=== PATIENT | female | born 1990 | race African-American/Black ===

== ENCOUNTER 2019-04-14 20:16 | Emergency (ER) | payer MEDICAID, OTHER ==
[~2019-04-14] VITALS: Ht 162.6 cm; Wt 62.1 kg
[2019-04-14 20:26] VITALS: BP 133/90
--- NOTE | 2019-04-14 20:33 | NUR ---
PT TAKEN TO BED 1
--- NOTE | 2019-04-14 20:38 | NUR ---
came in with c/o constipation for 3 weeks , bloated . pain level 9/10
--- NOTE | 2019-04-14 20:57 | NUR ---
SEEN AND EXAMINED BY PA WITH ORDERS AND CRRIED OUT.
[2019-04-14 21:51] LABS: BASOPHILS # (AUTO) 0.1 K/uL (0.00-0.22); BASOPHILS % (AUTO) 0.7 % (0.0-2.0); EOSINOPHILS # (AUTO) 0.1 K/uL (0-0.4); EOSINOPHILS % (AUTO) 0.8 % (0.0-4.0); HEMATOCRIT 31.6 % (36-48); LYMPHOCYTES % (AUTO) 18.6 % (20.5-51.1); MEAN CORPUSCULAR HEMOGLOBIN 22 pg (27-31); MEAN CORPUSCULAR HGB CONC 32 g/dL (33-37); MEAN CORPUSCULAR VOLUME 68.2 fL (80-94); MONOCYTES # (AUTO) 0.7 K/uL (0.8-1.0); MONOCYTES % (AUTO) 4.3 % (1.7-9.3); NEUTROPHILS % (AUTO) 75.6 % (42.2-75.2); PLATELET COUNT (AUTO) 332 K/uL (140-450); RED BLOOD CELL COUNT(AUTO) 4.63 MIL/uL (4.20-5.40); RED CELL DISTRIBUTION WIDTH 20.7 % (11.6-13.7); WHITE BLOOD COUNT (AUTO) 15.9 K/uL (4.8-10.8)
[2019-04-14 22:32] LABS: APPEARANCE,URINE SL CLOUDY (CLEAR); BILIRUBIN,URINE NEGATIVE (NEGATIVE); BLOOD, URINE NEGATIVE (NEGATIVE); COLOR,URINE YELLOW (YELLOW); LEUKOCYTE ESTERASE ,URINE NEGATIVE (NEGATIVE); NITRITE, URINE NEGATIVE (NEGATIVE); UGLUCOSE NEGATIVE (NEGATIVE)
--- NOTE | 2019-04-14 23:31 | NUR ---
Dr. Drivre examining patient
[2019-04-14 23:46] VITALS: BP 125/81
--- NOTE | 2019-04-14 23:47 | NUR ---
Patient discharged with v/s stable. Written and verbal after care instructions given and explained. Patient verbalized understanding. Ambulatory with steady gait. All questions addressed prior to discharge. Advised to follow up with PMD.
== END 2019-04-14 23:47 | disposition home or self-care (01) ==
LOC: MED 20:16
DX: O26.891 Other specified pregnancy related conditions, first trimester (principal); R14.0 Abdominal distension (gaseous); R10.9 Unspecified abdominal pain; Z3A.01 Less than 8 weeks gestation of pregnancy
CPT/HCPCS: 36415; 76802; 81003; 81025; 84702; 85025; 86900; 86901; 99284; Q0092

== ENCOUNTER 2021-07-04 14:31 | Emergency (ER) | payer OTHER ==
[~2021-07-04] VITALS: Ht 162.6 cm; Wt 71.9 kg
[2021-07-04 14:39] VITALS: BP 117/78
--- NOTE | 2021-07-04 14:51 | NUR ---
PT AMB TO BED 7.
--- NOTE | 2021-07-04 15:00 | NUR ---
30 Y/O FEMALE BIB SELF C/O VAGINAL BLEEDING, LOWER ABD PAIN, NAUSEA X 1 WEEK. LMP 05/13/21. 7 WEEKS. . PT STATES SHE IS FEELING MORE TIRED THAN USUAL AND HAS INTERMITTENT SOB. PT DENIES CHEST PAIN. PT DENIES FEVER OR CHILLS. VSS. TEMP 99.0, R 18, P, 87, O2 SAT 100%ROOM AIR, BP 117/78. PT IS ALERT AND ORIENTED X4. BED LOCKED IN LOWEST POSITION. BED RAIL X1. PMH: DENIES MEDS: DENIES
--- NOTE | 2021-07-04 15:02 | NUR ---
LAB AT PT BEDSIDE
[2021-07-04 15:16] LABS: BASOPHILS % (AUTO) 0.3 % (0.0-2.0); EOSINOPHILS % (AUTO) 0.3 % (0.0-4.0); HEMATOCRIT 39.2 % (36-48); HEMOGLOBIN 12.6 g/dL (12.0-16.0); LYMPHOCYTES # (AUTO) 2.6 K/uL (2.5-16.5); LYMPHOCYTES % (AUTO) 20.6 % (20.5-51.1); MEAN CORPUSCULAR HEMOGLOBIN 25 pg (27-31); MEAN CORPUSCULAR HGB CONC 32 g/dL (33-37); MEAN CORPUSCULAR VOLUME 77.9 fL (80-94); MONOCYTES # (AUTO) 0.7 K/uL (0.8-1.0); MONOCYTES % (AUTO) 5.8 % (1.7-9.3); NEUTROPHILS # (AUTO) 9.2 K/uL (1.8-7.7); PLATELET COUNT (AUTO) 351 K/uL (140-450); RED BLOOD CELL COUNT(AUTO) 5.03 MIL/uL (4.20-5.40); RED CELL DISTRIBUTION WIDTH 18.4 % (11.6-13.7); WHITE BLOOD COUNT (AUTO) 12.6 K/uL (4.8-10.8)
--- NOTE | 2021-07-04 15:17 | NUR ---
US AT PT BEDSIDE
--- NOTE | 2021-07-04 17:03 | NUR ---
URINE WALKED TO LAB
[2021-07-04 17:52] LABS: APPEARANCE,URINE CLEAR (CLEAR); BILIRUBIN,URINE NEGATIVE (NEGATIVE); BLOOD, URINE NEGATIVE (NEGATIVE); COLOR,URINE YELLOW (YELLOW); LEUKOCYTE ESTERASE ,URINE NEGATIVE (NEGATIVE); NITRITE, URINE NEGATIVE (NEGATIVE); PH,URINE 7.5 (5.0-9.0); UGLUCOSE NEGATIVE (NEGATIVE)
[2021-07-04 18:02] VITALS: BP 119/69
== END 2021-07-04 18:02 | disposition home or self-care (01) ==
LOC: MED 14:31
DX: O20.0 Threatened abortion (principal); Z3A.01 Less than 8 weeks gestation of pregnancy; Z98.890 Other specified postprocedural states
CPT/HCPCS: 36415; 76817; 81003; 84702; 85025; 86900; 86901; 99284; Q0092

== ENCOUNTER 2021-10-27 12:27 | Emergency (ER) | payer OTHER ==
[~2021-10-27] VITALS: Ht 162.6 cm; Wt 73.9 kg
[2021-10-27 13:09] VITALS: BP 158/79
[2021-10-27] MEDS ORDERED: PROM118S5 PO (14:14)
[2021-10-27] MEDS ORDERED: BENZ-300 PO (14:14)
[2021-10-27] MEDS ORDERED: ALBU0.0912 IH (14:14)
[2021-10-27 14:41] VITALS: BP 158/79
--- NOTE | 2021-10-27 14:42 | NUR ---
JACEK (ANGELLA) COLLECTED
--- NOTE | 2021-10-27 14:42 | NUR ---
Patient discharged with v/s stable. Written and verbal after care instructions about URI given and explained. Patient alert, oriented and verbalized understanding of instructions. Ambulatory with steady gait. All questions addressed prior to discharge. ID band removed. Patient advised to follow up with PMD. Rx of Proventil, Cepacol, Promethazine DM given. Patient educated on indication of medication including possible reaction and side effects. Opportunity to ask questions provided and answered.
== END 2021-10-27 14:42 | disposition home or self-care (01) ==
LOC: MED 12:27
DX: J06.9 Acute upper respiratory infection, unspecified (principal); Z20.822 Contact with and (suspected) exposure to COVID-19; J45.909 Unspecified asthma, uncomplicated; Z79.899 Other long term (current) drug therapy
CPT/HCPCS: 99283

== ENCOUNTER 2023-02-28 20:48 | Emergency (ER) | payer MEDICAID, OTHER ==
[~2023-02-28] VITALS: Ht 162.6 cm; Wt 74.8 kg
[~2023-02-28 20:48] MED LIST: ALBU0.0912 IH; BENZ-300 PO; PROM118S5 PO
[2023-02-28 21:10] VITALS: BP 142/86; PULSE 76; RESP 16; TEMP 98.7; O2SAT 99
[2023-02-28] MEDS ORDERED: ALBU0.0912 IH (22:07)
[2023-02-28] MEDS ORDERED: BENZ200C4 PO (22:07)
== END 2023-02-28 22:28 | disposition home or self-care (01) ==
LOC: MED 20:48
DX: J20.9 Acute bronchitis, unspecified (principal); R03.0 Elevated blood-pressure reading, without diagnosis of hypertension; Z79.899 Other long term (current) drug therapy
CPT/HCPCS: 71046; 81025; 99283